=== PATIENT | female | born 1930 | race Caucasian/White ===

== ENCOUNTER 2017-05-25 12:28 | Inpatient (IN) | payer OTHER, MEDICARE ==
[2017-05-25] VITALS (7 sets, daily range): BP systolic 110–162; BP diastolic 65–87; PULSE 71–90; RESP 16–20; TEMP 97.8–98.8; O2SAT 97–100
[~2017-05-25] VITALS: Ht 165.1 cm; Wt 52.1 kg
[2017-05-25] MEDS ORDERED: ONDANSETRON HCL 4 MG/2 ML VIAL IV ONE (13:15)
--- NOTE | 2017-05-25 13:15 | PD ---
HPI Chief Complaint: General Weakness Time Seen by Provider: 13:11 Travel History International Travel<30 days: No Contact w/Intl Traveler<30days: No Traveled to known affect area: No History of Present Illness HPI 86-year-old female patient presents to the ER today brought in by daughter because she has had several days' history of nausea, burping, general weakness, not eating well, one episode of vomiting. They deny any diarrhea, fevers, abdominal pains, or any other symptoms. They do not know any sick contacts. Modifying Factors: None Associated Signs & Symptoms: Nausea, not feeling well, general weakness, burping , vomiting Risk Factors: None PFSH Past Medical History ?: Not Social History Tobacco Use: No Allergies-Medications (Allergen,Severity, Reaction): Coded Allergies: No Known Allergies (Unverified , 05/25/17) Review of Systems Except as stated in HPI: all other systems reviewed are Neg Physical Exam Narrative GENERAL: Well-developed elderly white female patient currently in moderate distress. Awake, oriented 3. SKIN: Focused skin assessment warm/dry. HEAD: Atraumatic. Normocephalic. EYES: Pupils equal and round. No scleral icterus. No injection or drainage. ENT: No nasal bleeding or discharge. Mucous membranes pink and moist. NECK: Trachea midline. No JVD. CARDIOVASCULAR: Regular rate and rhythm. No murmur appreciated. RESPIRATORY: No accessory muscle use. Clear to auscultation. Breath sounds equal bilaterally. GASTROINTESTINAL: Abdomen soft, non-tender, nondistended. Hepatic and splenic margins not palpable. MUSCULOSKELETAL: No obvious deformities. No clubbing. No cyanosis. No edema. NEUROLOGICAL: Awake and alert. No obvious cranial nerve deficits. Motor grossly within normal limits. Normal speech. PSYCHIATRIC: Appropriate mood and affect; insight and judgment normal. Data Data Last Documented VS Vital Signs Date Time Temp Pulse Resp B/P Pulse Ox O2 Delivery O2 Flow Rate FiO2 05/25/17 12:37 97.8 90 18 132/78 99 Orders Complete Blood Count With Diff (05/25/17 13:03) Comprehensive Metabolic Panel (05/25/17 13:03) Lactic Acid Sepsis Protocol (05/25/17 13:03) Magnesium (Mg) (05/25/17 13:03) Lipase (05/25/17 13:03) Ckmb (Isoenzyme) Profile (05/25/17 13:03) Troponin I (05/25/17 13:03) Urinalysis - C+S If Indicated (05/25/17 13:03) Blood Culture (05/25/17 13:03) Chest, Single Ap (05/25/17 13:03) Blood Glucose (05/25/17 13:03) Ecg Monitoring (05/25/17 13:03) Iv Access Insert/Monitor (05/25/17 13:03) Oximetry (05/25/17 13:03) Oxygen Administration (05/25/17 13:03) Ondansetron Inj (Zofran Inj) (05/25/17 13:15) Abdomen, Flat & Upright (05/25/17 13:11) Ns + Kcl 20 Meq Inj (Ns + Kcl 20 Meq Inj (05/25/17 14:15) Sodium Chlorid 0.9% 500 Ml Inj (Ns 500 M (05/25/17 14:15) Labs Laboratory Tests Test 05/25/17 05/25/17 13:25 14:00 White Blood Count 8.3 TH/MM3 Red Blood Count 4.82 MIL/MM3 Hemoglobin 14.6 GM/DL Hematocrit 44.3 % Mean Corpuscular Volume 91.8 FL Mean Corpuscular Hemoglobin 30.3 PG Mean Corpuscular Hemoglobin 33.1 % Concent Red Cell Distribution Width 12.3 % Platelet Count 143 TH/MM3 Mean Platelet Volume 10.2 FL Neutrophils (%) (Auto) 76.4 % Lymphocytes (%) (Auto) 15.3 % Monocytes (%) (Auto) 7.3 % Eosinophils (%) (Auto) 0.4 % Basophils (%) (Auto) 0.6 % Neutrophils # (Auto) 6.4 TH/MM3 Lymphocytes # (Auto) 1.3 TH/MM3 Monocytes # (Auto) 0.6 TH/MM3 Eosinophils # (Auto) 0.0 TH/MM3 Basophils # (Auto) 0.0 TH/MM3 CBC Comment DIFF FINAL Differential Comment Sodium Level 141 MEQ/L Potassium Level 2.9 MEQ/L Chloride Level 101 MEQ/L Carbon Dioxide Level 28.0 MEQ/L Anion Gap 12 MEQ/L Blood Urea Nitrogen 16 MG/DL Creatinine 1.10 MG/DL Estimat Glomerular Filtration 47 ML/MIN Rate Random Glucose 121 MG/DL Lactic Acid Level 4.1 mmol/L Calcium Level 9.9 MG/DL Magnesium Level 1.9 MG/DL Total Bilirubin 1.0 MG/DL Aspartate Amino Transf 25 U/L (AST/SGOT) Alanine Aminotransferase 29 U/L (ALT/SGPT) Alkaline Phosphatase 99 U/L Total Creatine Kinase 51 U/L Troponin I LESS THAN 0.02 NG/ML Total Protein 7.8 GM/DL Albumin 3.9 GM/DL Lipase 154 U/L Urine Collection Type CATH Urine Color YELLOW Urine Turbidity CLEAR Urine pH 7.0 Urine Specific [place] 1.016 Urine Protein TRACE mg/dL Urine Glucose (UA) NEG mg/dL Urine Ketones 80 OR GREATER mg/dL Urine Occult Blood NEG Urine Nitrite NEG Urine Bilirubin NEG Urine Leukocyte Esterase NEG Urine Squamous Epithelial 0-5 /hpf Cells Microscopic Urinalysis Comment CULT NOT INDICATED MDM Medical Decision Making Medical Screen Exam Complete: Yes Emergency Medical Condition: Yes Medical Record Reviewed: Yes Interpretation(s) Laboratory Tests Test 05/25/17 05/25/17 13:25 14:00 Platelet Count 143 TH/MM3 (150-450) Neutrophils (%) (Auto) 76.4 % (16.0-70.0) Potassium Level 2.9 MEQ/L (3.5-5.1) Creatinine 1.10 MG/DL (0.50-1.00) Estimat Glomerular Filtration 47 ML/MIN (>89) Rate Random Glucose 121 MG/DL (74-106) Lactic Acid Level 4.1 mmol/L (0.4-2.0) Troponin I LESS THAN 0.02 NG/ML (0.02-0.05) Urine Ketones 80 OR GREATER mg/dL (NEG) Last 24 hours Impressions Abdomen X-Ray 05/25/17 1311 Signed Impressions: Service Date/Time: Thursday, May 25, 2017 13:42 - CONCLUSION: Cholelithiasis. Marylou Winkler MD Chest X-Ray 05/25/17 1303 Signed Impressions: Service Date/Time: Thursday, May 25, 2017 13:40 - CONCLUSION: No acute cardiopulmonary disease. Marylou Winkler MD Differential Diagnosis Nausea, general weakness, vomiting, poor by mouth intakedehydration versus metabolic issues versus gastroenteritis Narrative Course Lab work shows significant hypokalemia. She is generally weak in the ER but has no focal findings. Abdomen is fairly benign. IV fluids and potassium was given in the ER. My plan would be to admit the patient for further evaluation. Case was discussed with Dr. Valero for admission. Diagnosis Primary Impression: Hypokalemia Additional Impression: Dehydration Admitting Information Admitting Physician Requests: it Ludmila Moses MD May 25, 2017 13:15
[2017-05-25 13:40] LABS: AUTOMATED NEUTROPHIL # 6.4 TH/MM3 (1.8-7.7); BASOPHIL % 0.6 % (0.0-2.0); EOSINOPHIL % 0.4 % (0.0-4.0); HEMATOCRIT 44.3 % (35.0-46.0); HEMO FLAGS DIFF FINAL; LYMPH % 15.3 % (9.0-44.0); LYMPHOCYTE # 1.3 TH/MM3 (1.0-4.8); MEAN CELL VOLUME 91.8 FL (80.0-100.0); MEAN CORPUSCULAR HEMOGLOBIN 30.3 PG (27.0-34.0); MEAN CORPUSCULAR HGB CONC 33.1 % (32.0-36.0); MONO % 7.3 % (0.0-8.0); NEUT % 76.4 % (16.0-70.0); PLATELET COUNT 143 TH/MM3 (150-450); RED BLOOD COUNT 4.82 MIL/MM3 (4.00-5.30); RED CELL DISTRIBUTION WIDTH 12.3 % (11.6-17.2); WHITE BLOOD COUNT 8.3 TH/MM3 (4.0-11.0)
--- NOTE | 2017-05-25 14:03 | RADRPT ---
EXAM DATE/TIME: 05/25/2017 13:40 [facility] COMPARISON: No previous studies available for comparison. INDICATIONS : Short of breath, dizzy, light headed, weak MEDICAL HISTORY : None. SURGICAL HISTORY : Hysterectomy. ENCOUNTER: Initial ACUITY: 3 days PAIN SCORE: 0/10 LOCATION: Bilateral chest FINDINGS: The lungs are clear without infiltrate, nodule, or mass. There is no appreciable pleural effusion fo r technique. Heart and mediastinum are unremarkable. Chronic degenerative changes are present in malina ateral shoulders. There are atherosclerotic calcifications of the aorta due to chronic atheroscleroti c disease. There are degenerative changes within the thoracic spine and the bony structures appear sl ightly osteopenic. CONCLUSION: No acute cardiopulmonary disease. Marylou Winkler MD on May 25, 2017 at 14:01 Board Certified Radiologist. This report was verified electronically.
[2017-05-25 14:04] LABS: ALKALINE PHOSPHATASE 99 U/L (45-117); ALT (GPT) 29 U/L (10-53); ANION GAP 12 MEQ/L (5-15); AST (GOT) 25 U/L (15-37); BLOOD UREA NITROGEN 16 MG/DL (7-18); CHLORIDE 101 MEQ/L (98-107); CREATINE KINASE 51 U/L (26-192); GLOMERULAR FILTRATION RATE 47 ML/MIN (>89); MAGNESIUM 1.9 MG/DL (1.5-2.5); SODIUM (NA) 141 MEQ/L (136-145)
--- NOTE | 2017-05-25 14:04 | RADRPT ---
EXAM DATE/TIME: 05/25/2017 13:42 [facility] COMPARISON: No previous studies available for comparison. INDICATIONS : Weak, vomiting, unable to eat, dizzy, short of breath MEDICAL HISTORY : None. SURGICAL HISTORY : Hysterectomy. ENCOUNTER: Initial ACUITY: 3 days PAIN SCORE: 0/10 LOCATION: Bilateral abdomen FINDINGS: The bowel gas is nonspecific. There are no signs of obstruction or free air for technique. No defini te calcified stones are identified for technique. The gallbladder demonstrates multiple stones withou t gallbladder wall thickening, or pericholecystic fluid. Chronic atherosclerotic calcifications are s een involving the visualized arteries particularly the splenic artery. There are atherosclerotic calc ifications of the aorta due to chronic atherosclerotic disease. There is lumbar scoliosis with degene rative changes convexity towards the right. CONCLUSION: Cholelithiasis. Marylou Winkler MD on May 25, 2017 at 14:02 Board Certified Radiologist. This report was verified electronically.
[2017-05-25 14:05] LABS: POTASSIUM 2.9 MEQ/L (3.5-5.1)
[2017-05-25 14:12] LABS: BLOOD, URINE NEG (NEG); GLUCOSE,URINE NEG (NEG); NITRITE,URINE NEG (NEG)
[2017-05-25 14:14] LABS: KETONE, URINE 80 OR GREATER mg/dL (NEG)
[2017-05-25 14:15] LABS: METHOD OF COLLECTION CATH; URINE COLOR YELLOW (YELLW/STRAW)
[2017-05-25] MEDS ORDERED: SODIUM CHLORID 0.9% 500 ML INJ 500 ML IV ONE (14:15)
[2017-05-25 14:16] LABS: COMMENT (UR) CULT NOT INDICATED; CULTURE IF INDICATED CULT NOT INDICATED; SQUAMOUS EPITHELIAL CELL URINE 0-5 /hpf (0-5)
[2017-05-25] MEDS: NS + KCL 20 MEQ INJ 1,000 ML IV SCH ×2 (14:29→20:52)
[2017-05-25] MEDS ORDERED: BISACODYL 10 MG SUPP RECTAL PRN (14:30)
[2017-05-25] MEDS ORDERED: SODIUM CHLORIDE 0.9% FLUSH 10 ML FLUSH IV FLUSH PRN (14:30)
[2017-05-25] MEDS ORDERED: ACETAMINOPHEN 325 MG TAB PO PRN (14:30)
[2017-05-25] MEDS ORDERED: ONDANSETRON HCL 4 MG/2 ML VIAL IVP PRN (14:30)
[2017-05-25] MEDS ORDERED: MAGNESIUM HYDROXIDE SUSP 30 ML CUP PO PRN (14:30)
[2017-05-25] MEDS ORDERED: NALOXONE HCL 0.4 MG/ML AMP IV PRN (14:30)
[2017-05-25] MEDS ORDERED: SENNOSIDES 8.6 MG TAB PO PRN (14:30)
[2017-05-25] MEDS ORDERED: TRIA1TAB5 PO (14:44)
[2017-05-25] MEDS ORDERED: ALLO100T PO (14:44)
[2017-05-25] MEDS ORDERED: POTA-243 PO (14:44)
[2017-05-25] MEDS ORDERED: GEMF600T PO (14:44)
[2017-05-25] MEDS ORDERED: METO50TA PO (14:44)
--- NOTE | 2017-05-25 15:07 | HHI.HP ---
[facility] Service [place] [facility] Primary Care Physician Analy Pop MD Admission Diagnosis hypokalemia, dehydration Diagnoses: Chief Complaint: Poor oral intake, feeling down Travel History International Travel<30 Days: No Contact w/Intl Traveler <30 Da: No Traveled to Known Affected Are: No History of Present Illness 86 years old female brought to the ED by her daughter due to not eating or drinking for last 2 days and significant anhedonia for the last 2 weeks, history of losing about 15 pounds over the last 2 months. Patient denied any significant complain like fever chills, night sweat, chest pain abdominal pain, headache blurry vision, diarrhea or dysuria, she reported constipation Patient is not happy about coming to the hospital brought by her daughter, she doesn't think she need to be here, however she agreed that she doesn't feel like doing anything or eating anything because "nothing seems to be at feeling " When I asked her if she feels sad or depressed she denied. In ED she was found to have low potassium 2.9 and lactic acid of 4.1 along with azotemia increase creatinine, we do not have a baseline of her creatinine, blood culture obtained, patient started on iv fluids with KCl, no leukocytosis, neutrophils 79, no fever or chills. Abdominal x-rays showed cholelithiasis Review of Systems All systems reviewed and was positive for what is mentioned in history of present illness otherwise negative Past Family Social History Past Medical History Right basal cell carcinoma on the right hand skin Hypertension Gout Hyperlipidemia Past Surgical History BCC excision on the right arm Allergies: Coded Allergies: No Known Allergies (Unverified , 05/25/17) Family History Skin cancer Social History Denied tobacco alcohol or illicit drug abuse Physical Exam Vital Signs Vital Signs Date Time Temp Pulse Resp B/P Pulse Ox O2 Delivery O2 Flow Rate FiO2 05/25/17 14:53 83 16 133/73 98 05/25/17 13:50 85 16 110/65 99 05/25/17 12:37 97.8 90 18 132/78 99 Physical Exam GENERAL: This is a well-nourished, well-developed patient, in no apparent distress. SKIN: No rashes, warm and dry HEAD: Atraumatic. Normocephalic. EYES: Pupils equal round and reactive. Extraocular motions intact. No scleral icterus. ENT: Nose without bleeding, or drainage, Airway patent. NECK: Trachea midline. Supple CARDIOVASCULAR: Regular rate and rhythm without murmurs, gallops, or rubs. RESPIRATORY: Fair air entry bilaterally. No wheezes, rales, or rhonchi. GASTROINTESTINAL: Abdomen soft, non-tender, nondistended. Positive bowel sounds MUSCULOSKELETAL: Extremities without clubbing, cyanosis, or edema. Pedal pulses appreciated NEUROLOGICAL: Awake and alert. Moves all extremity. Normal speech.no focal neurological deficit Laboratory Laboratory Tests Test 05/25/17 05/25/17 13:25 14:00 White Blood Count 8.3 Red Blood Count 4.82 Hemoglobin 14.6 Hematocrit 44.3 Mean Corpuscular Volume 91.8 Mean Corpuscular Hemoglobin 30.3 Mean Corpuscular Hemoglobin 33.1 Concent Red Cell Distribution Width 12.3 Platelet Count 143 Mean Platelet Volume 10.2 Neutrophils (%) (Auto) 76.4 Lymphocytes (%) (Auto) 15.3 Monocytes (%) (Auto) 7.3 Eosinophils (%) (Auto) 0.4 Basophils (%) (Auto) 0.6 Neutrophils # (Auto) 6.4 Lymphocytes # (Auto) 1.3 Monocytes # (Auto) 0.6 Eosinophils # (Auto) 0.0 Basophils # (Auto) 0.0 CBC Comment DIFF FINAL Differential Comment Sodium Level 141 Potassium Level 2.9 Chloride Level 101 Carbon Dioxide Level 28.0 Anion Gap 12 Blood Urea Nitrogen 16 Creatinine 1.10 Estimat Glomerular Filtration 47 Rate Random Glucose 121 Lactic Acid Level 4.1 Calcium Level 9.9 Magnesium Level 1.9 Total Bilirubin 1.0 Aspartate Amino Transf 25 (AST/SGOT) Alanine Aminotransferase 29 (ALT/SGPT) Alkaline Phosphatase 99 Total Creatine Kinase 51 Troponin I LESS THAN 0.02 Total Protein 7.8 Albumin 3.9 Lipase 154 Urine Collection Type CATH Urine Color YELLOW Urine Turbidity CLEAR Urine pH 7.0 Urine Specific [place] 1.016 Urine Protein TRACE Urine Glucose (UA) NEG Urine Ketones 80 OR GREATER Urine Occult Blood NEG Urine Nitrite NEG Urine Bilirubin NEG Urine Leukocyte Esterase NEG Urine Squamous Epithelial 0-5 Cells Microscopic Urinalysis Comment CULT NOT INDICATED Date/Time Procedure Status Source Growth 05/25/17 13:55 Aerobic Blood Culture Received Blood Peripheral Pending 05/25/17 13:55 Anaerobic Blood Culture Received Blood Peripheral Pending Result Diagram: 05/25/17 1325 05/25/17 1325 Imaging Last Impressions Abdomen X-Ray 05/25/17 1311 Signed Impressions: Service Date/Time: Thursday, May 25, 2017 13:42 - CONCLUSION: Cholelithiasis. Marylou Winkler MD Chest X-Ray 05/25/17 1303 Signed Impressions: Service Date/Time: Thursday, May 25, 2017 13:40 - CONCLUSION: No acute cardiopulmonary disease. Marylou Winkler MD Assessment and Plan Assessment and Plan 86 years old female admitted with poor oral intake, and progressive weakness -Poor oral intake resulted in dehydration , hypokalemia and lactic acidosis: Need to rule out underlying infection, blood culture sent, started iv fluid with KCl, UA is negative, check cardiac enzyme, EKG reviewed personally by me no acute ST changes -ROBIN versus CKD: Continue iv fluid, avoid nephrotoxin, monitor BMP, BUN and creatinine -Hypertension: Hold HCTZ and trimetrine due to dehydration and ROBIN, clonidine as needed -Hyperlipidemia: Continue gemfibrozil -Weakness: PT OT consulted -DVT prophylaxis with SCD and heparin We'll admit for observation, hydration, rule out underlying infection Discussed Condition With Patient in ED physician Peggy Valero MD May 25, 2017 15:07
[2017-05-25] MEDS ORDERED: cloNIDine HCL 0.1 MG TAB PO PRN (15:15)
[2017-05-25 15:35] LABS: LACTIC ACID GHOST NOT REPORTABLE
--- NOTE | 2017-05-25 16:12 | RADRPT ---
EXAM DATE/TIME: 05/25/2017 15:13 [facility] COMPARISON: No previous studies available for comparison. INDICATIONS : Nausea and vomiting. MEDICAL HISTORY : Hypertension. Nausea. Vomiting. SURGICAL HISTORY : Tonsillectomy. Hysterectomy. ENCOUNTER: Initial ACUITY: 1 day PAIN SCORE: 3/10 LOCATION: Right upper quadrant MEASUREMENTS: LIVER: 12.5 cm length COMMON DUCT: 2 mm RIGHT KIDNEY: 9.2 x 4.4 x 3.9 cm FINDINGS: Numerous large gallstones are present with extensive sludge within the gallbladder without gallbladde r wall thickening, or pericholecystic fluid. The visualized liver, head of the pancreas, and right k idney appear grossly intact for technique. CONCLUSION: Cholelithiasis. Marylou Winkler MD on May 25, 2017 at 16:10 Board Certified Radiologist. This report was verified electronically.
[2017-05-25] MEDS: HEPARIN SODIUM - SQ 10,000 UNITS/ML VIAL SQ SCH ×2 (16:17→20:53)
[2017-05-25] MEDS: GEMFIBROZIL 600 MG TAB PO SCH (16:18)
[2017-05-25 16:45] LABS: CREATINE KINASE 56 U/L (26-192)
[2017-05-25] MEDS: SODIUM CHLORIDE 0.9% FLUSH 10 ML FLUSH IV FLUSH SCH (20:52)
[2017-05-25] MEDS: DOCUSATE SODIUM 50 MG/SENNA 8.6 MG TAB PO SCH (20:52)
[2017-05-26] VITALS (7 sets, daily range): BP systolic 125–160; BP diastolic 65–93; PULSE 69–80; RESP 16–20; TEMP 96–100.6; O2SAT 94–100
[2017-05-26] MEDS: GEMFIBROZIL 600 MG TAB PO SCH ×2 (05:59→16:00)
[2017-05-26] MEDS: HEPARIN SODIUM - SQ 10,000 UNITS/ML VIAL SQ SCH ×3 (05:59→22:43)
[2017-05-26 06:57] LABS: AUTOMATED NEUTROPHIL # 3.9 TH/MM3 (1.8-7.7); BASOPHIL % 0.5 % (0.0-2.0); EOSINOPHIL % 0.8 % (0.0-4.0); HEMATOCRIT 37.3 % (35.0-46.0); LYMPH % 20.3 % (9.0-44.0); LYMPHOCYTE # 1.2 TH/MM3 (1.0-4.8); MEAN CELL VOLUME 93.1 FL (80.0-100.0); MEAN CORPUSCULAR HEMOGLOBIN 30.3 PG (27.0-34.0); MEAN CORPUSCULAR HGB CONC 32.5 % (32.0-36.0); MONO % 11.2 % (0.0-8.0); NEUT % 67.2 % (16.0-70.0); PLATELET COUNT 98 TH/MM3 (150-450); RED BLOOD COUNT 4.01 MIL/MM3 (4.00-5.30); WHITE BLOOD COUNT 5.8 TH/MM3 (4.0-11.0)
[2017-05-26 06:58] LABS: HEMO FLAGS AUTO DIFF
[2017-05-26 07:14] LABS: PLATELET ESTIMATE SMEAR LOW (NORMAL); PLATELET MORPHOLOGY NORMAL (NORMAL); SCAN/DIFF AUTO DIFF CONFIRMED
[2017-05-26 07:19] LABS: BICARBONATE 26.8 MEQ/L (21.0-32.0); INDIRECT BILIRUBIN 0.6 MG/DL (0.0-0.8); POTASSIUM 3.1 MEQ/L (3.5-5.1); TOTAL BILIRUBIN ADULT 0.8 MG/DL (0.2-1.0)
[2017-05-26] MEDS: METOPROLOL TARTRATE 50 MG TAB PO SCH (08:46)
[2017-05-26] MEDS: DOCUSATE SODIUM 50 MG/SENNA 8.6 MG TAB PO SCH ×2 (08:46→20:17)
[2017-05-26] MEDS: ALLOPURINOL 100 MG TAB PO SCH (08:46)
[2017-05-26] MEDS: SODIUM CHLORIDE 0.9% FLUSH 10 ML FLUSH IV FLUSH SCH ×2 (08:47→20:12)
[2017-05-26] MEDS: NS + KCL 20 MEQ INJ 1,000 ML IV SCH ×2 (08:56→18:25)
[2017-05-26] MEDS ORDERED: POTASSIUM CHLORIDE 10 MEQ CONTROLLED RELEASE TAB PO SCH (09:00)
[2017-05-26] MEDS ORDERED: TRIAMTERENE/HCTZ 75 MG/50 MG TAB PO SCH (09:00)
[2017-05-26] MEDS ORDERED: POTA10TA2 PO (09:05)
[2017-05-26] MEDS ORDERED: AMLO5TAB2 PO (09:05)
[2017-05-26] MEDS ORDERED: POTASSIUM CHLOR 20 MEQ PREMIX 100 ML IV ONE (09:15)
[2017-05-26] MEDS ORDERED: POTASSIUM CHLORIDE 20 MEQ CONTROLLED RELEASE TAB PO ONE (09:30)
--- NOTE | 2017-05-26 10:01 | HHI.FF ---
Face to Face Verification Diagnosis: (1) Dehydration (2) Hypokalemia (3) Weakness Physical Therapy Order: Evaluate and Treat Occupational Therapy Order: Evaluate and Treat Home Health Nursing Order: Medical education I have seen patient Eufemia Baron on 05/26/17. My clinical findings support the need for the requested home health care services because: Deconditioned w/ increased weakness I certify that my clinical findings support that this patient is homebound because: Unsafe to leave home unassisted Peggy Valero MD May 26, 2017 10:01
--- NOTE | 2017-05-26 10:45 | HHI.PR ---
Subjective Remarks Patient resting in bed, she looked sad but she denied active complain besides feeling weak Her potassium still on the lower side 3.1 this despite iv replacement This morning the nurse told me patient had 3-4 large watery bowel movement, when I asked the patient she said "you have I may have diarrhea " Patient had a fever of 100.6 this morning at 1 AM No leukocytosis today no bandemia Objective Vitals Vital Signs Date Time Temp Pulse Resp B/P Pulse Ox O2 Delivery O2 Flow Rate FiO2 05/26/17 08:00 97.9 77 18 142/78 100 05/26/17 08:00 77 05/26/17 04:00 98.8 78 16 160/73 98 05/26/17 01:11 100.6 80 20 158/93 100 05/25/17 21:52 98.8 71 18 140/67 97 05/25/17 20:00 71 05/25/17 20:00 97 Nasal Cannula 2.00 05/25/17 18:15 76 05/25/17 17:50 98.8 82 20 162/87 100 05/25/17 14:53 83 16 133/73 98 05/25/17 13:50 85 16 110/65 99 05/25/17 12:37 97.8 90 18 132/78 99 I/O 05/25/17 05/25/17 05/25/17 05/26/17 05/26/17 05/26/17 06:59 14:59 22:59 06:59 14:59 22:59 Intake Total 500 ml 905 ml Balance 500 ml 905 ml Intake IV Total 500 ml 905 ml # Voids 1 3 # Bowel Movements 1 1 Result Diagram: 05/26/17 0545 05/26/17 0545 Imaging Last Impressions Gall Bladder Ultrasound 05/25/17 1432 Signed Impressions: Service Date/Time: Thursday, May 25, 2017 15:13 - CONCLUSION: Cholelithiasis. Marylou Winkler MD Abdomen X-Ray 05/25/17 1311 Signed Impressions: Service Date/Time: Thursday, May 25, 2017 13:42 - CONCLUSION: Cholelithiasis. Marylou Winkler MD Chest X-Ray 05/25/17 1303 Signed Impressions: Service Date/Time: Thursday, May 25, 2017 13:40 - CONCLUSION: No acute cardiopulmonary disease. Marylou Winkler MD Objective Remarks GENERAL: This is a well-nourished, well-developed patient, in no apparent distress. SKIN: No rashes, warm and dry HEAD: Atraumatic. Normocephalic. EYES: Pupils equal round and reactive. Extraocular motions intact. No scleral icterus. ENT: Nose without bleeding, or drainage, Airway patent. NECK: Trachea midline. Supple CARDIOVASCULAR: Regular rate and rhythm without murmurs, gallops, or rubs. RESPIRATORY: Fair air entry bilaterally. No wheezes, rales, or rhonchi. GASTROINTESTINAL: Abdomen soft, non-tender, nondistended. Positive bowel sounds MUSCULOSKELETAL: Extremities without clubbing, cyanosis, or edema. Pedal pulses appreciated NEUROLOGICAL: Awake and alert. Moves all extremity. Normal speech.no focal neurological deficit A/P Assessment and Plan 86 years old female admitted with poor oral intake, and progressive weakness -Poor oral intake resulted in dehydration , hypokalemia and lactic acidosis: Need to rule out underlying infection, blood culture sent, started iv fluid with KCl, UA is negative, check cardiac enzyme, EKG reviewed personally by me no acute ST changes -ROBIN : Improved on iv hydration Continue iv fluid, avoid nephrotoxin, monitor BMP, BUN and creatinine -Acute diarrhea: Send stool for ova WBC and C. 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 UA negative, chest x- ray negative. We'll check abdominal CT considering her new diarrhea Discharge Planning When stable Peggy Valero MD May 26, 2017 10:45
[2017-05-26] MEDS ORDERED: SODIUM CHLOR 0.9% 1000 ML INJ 1,000 ML IV SCH (11:30)
[2017-05-26] MEDS ORDERED: LEVO50TA4 PO (13:13)
[2017-05-26] MEDS ORDERED: VANCOMYCIN INJ 850 MG in SODIUM CHLOR 0.9% 250 ML INJ 250 ML IV SCH (15:15)
[2017-05-26] MEDS ORDERED: Vancomycin Consult Pharmacy 1 EA OTHER SCH (16:00)
[2017-05-26 17:06] LABS: C. DIFF EPI 027 PRESUMPTIVE NEGATIVE (NEGATIVE); C. DIFF TOXIN PCR NEGATIVE (NEGATIVE)
[2017-05-26] MEDS: VANCOMYCIN 1,000 MG/NS 250 ML IV SCH ×2 (18:25)
[2017-05-26] MEDS ORDERED: DIATRIZOATE MEGLUM/DIATRIZOATE SOD 9 ML CUP PO ONE (19:45)
--- NOTE | 2017-05-26 19:52 | EKG ---
Date Performed: 05/25/2017 Time Performed: 14:45:41 PTAGE: 86 years EKG: Sinus rhythm NONSPECIFIC ST & T-WAVE ABNORMALITY BORDERLINE ECG NO PREVIOUS TRACING DOCTOR: Yeyo Gonzalez Interpretating Date/Time 05/26/2017 19:50:52
--- NOTE | 2017-05-26 19:53 | EKG ---
Date Performed: 05/25/2017 Time Performed: 20:34:21 PTAGE: 86 years EKG: Sinus rhythm NONSPECIFIC ST & T-WAVE ABNORMALITY BORDERLINE ECG PREVIOUS TRACING : 05/25/2017 14.45 Since previous tracing, no significant change noted DOCTOR: Yeyo Gonzalez Interpretating Date/Time 05/26/2017 19:51:21
--- NOTE | 2017-05-26 23:47 | RADRPT ---
EXAM DATE/TIME: 05/26/2017 22:42 [facility] COMPARISON: No previous studies available for comparison. INDICATIONS : Right abdominal pain. Fever. Diarrhea. ORAL CONTRAST: Prescribed oral contrast ingested. RADIATION DOSE: 11.09 CTDIvol (mGy) MEDICAL HISTORY : Hypertension. Gastroesophageal reflux disease. Carcinoma, basal cell. SURGICAL HISTORY : Hysterectomy. ENCOUNTER: Subsequent ACUITY: 3 days PAIN SCALE: 2/10 LOCATION: Right abdomen and pelvis TECHNIQUE: Volumetric scanning of the abdomen and pelvis was performed. Using automated exposure control and ad justment of the mA and/or kV according to patient size, radiation dose was kept as low as reasonably achievable to obtain optimal diagnostic quality images. DICOM format image data is available electro nically for review and comparison. The lack of IV contrast limits the diagnosis for certain organ pa thology. FINDINGS: LOWER LUNGS: Mild bibasilar atelectasis. LIVER: Homogeneous density without lesion. There is no dilation of the biliary tree. Prominent calcified ga llstones in the gallbladder. No surrounding inflammatory changes.. SPLEEN: Normal size without lesion. PANCREAS: Within normal limits. KIDNEYS: Normal in size and shape. There is no mass, stone, or hydronephrosis. ADRENAL GLANDS: Within normal limits. VASCULAR: There is no aortic aneurysm. Atherosclerotic changes. BOWEL/MESENTERY: The stomach, small bowel, and colon demonstrate no acute abnormality. There is no free intraperitone al air or fluid. The appendix is unremarkable. No inflammatory changes. ABDOMINAL WALL: Within normal limits. RETROPERITONEUM: There is no lymphadenopathy. BLADDER: No wall thickening or mass. REPRODUCTIVE: Within normal limits. INGUINAL: There is no lymphadenopathy or hernia. MUSCULOSKELETAL: Within normal limits for patient age. Diffuse bony degenerative changes. CONCLUSION: 1. Several prominent gallstones in the gallbladder. No biliary tract obstruction. No adjacent inflamm atory changes. 2. No calcified renal stones or hydronephrosis. 3. No acute pathology. Mayito Stoddard MD on May 26, 2017 at 23:42 Board Certified Radiologist. This report was verified electronically.
[2017-05-27] VITALS (9 sets, daily range): BP systolic 119–150; BP diastolic 60–83; PULSE 59–77; RESP 18–20; TEMP 96.2–98.9; O2SAT 96–100
[2017-05-27] MEDS: GEMFIBROZIL 600 MG TAB PO SCH ×2 (06:25→16:47)
[2017-05-27] MEDS: NS + KCL 20 MEQ INJ 1,000 ML IV SCH ×3 (06:25→21:26)
[2017-05-27] MEDS: HEPARIN SODIUM - SQ 10,000 UNITS/ML VIAL SQ SCH ×3 (07:00→21:25)
[2017-05-27] MEDS: DOCUSATE SODIUM 50 MG/SENNA 8.6 MG TAB PO SCH ×2 (07:06→19:26)
[2017-05-27] MEDS: SODIUM CHLORIDE 0.9% FLUSH 10 ML FLUSH IV FLUSH SCH ×2 (07:17→19:26)
[2017-05-27] MEDS: METOPROLOL TARTRATE 50 MG TAB PO SCH (09:31)
[2017-05-27] MEDS: TRIAMTERENE/HCTZ 37.5 MG/25 MG TAB PO SCH (09:31)
[2017-05-27] MEDS: ALLOPURINOL 100 MG TAB PO SCH (09:31)
--- NOTE | 2017-05-27 11:24 | HHI.PR ---
Subjective Remarks Patient seems to be depressed, she never answer question with a specific answer Likely when I asked her "did you have diarrhea? "She answer "I guess, that's what they say " Patient seems to be still having diarrhea, we are waiting on 1 to positive blood culture and stool culture I will start patient on Remeron Objective Vitals Vital Signs Date Time Temp Pulse Resp B/P Pulse Ox O2 Delivery O2 Flow Rate FiO2 05/27/17 08:00 97.2 62 18 130/65 100 05/27/17 04:00 96.2 70 18 123/70 98 05/27/17 00:00 97.1 70 20 119/60 97 05/26/17 22:24 95 Nasal Cannula 2.00 05/26/17 20:00 73 05/26/17 20:00 96.0 71 20 125/65 100 05/26/17 16:00 97.5 79 18 126/76 94 05/26/17 12:00 97.7 69 18 131/77 96 I/O 05/26/17 05/26/17 05/26/17 05/27/17 05/27/17 05/27/17 06:59 14:59 22:59 06:59 14:59 22:59 Intake Total 905 ml 1106 ml Output Total 2 ml Balance 905 ml 1104 ml Intake Oral 120 ml IV Total 905 ml 986 ml Output Urine Total 1 ml Stool Total 1 ml # Voids 3 4 # Bowel Movements 1 1 10 Result Diagram: 05/26/17 0545 05/26/17 1555 Objective Remarks GENERAL: This is a well-nourished, well-developed patient, in no apparent distress. SKIN: No rashes, warm and dry HEAD: Atraumatic. Normocephalic. EYES: Pupils equal round and reactive. Extraocular motions intact. No scleral icterus. ENT: Nose without bleeding, or drainage, Airway patent. NECK: Trachea midline. Supple CARDIOVASCULAR: Regular rate and rhythm without murmurs, gallops, or rubs. RESPIRATORY: Fair air entry bilaterally. No wheezes, rales, or rhonchi. GASTROINTESTINAL: Abdomen soft, non-tender, nondistended. Positive bowel sounds MUSCULOSKELETAL: Extremities without clubbing, cyanosis, or edema. Pedal pulses appreciated NEUROLOGICAL: Awake and alert. Moves all extremity. Normal speech.no focal neurological deficit Psych "flat affect A/P Assessment and Plan 86 years old female admitted with poor oral intake, and progressive weakness -Poor oral intake resulted in dehydration , hypokalemia and lactic acidosis: Need to rule out underlying infection, blood culture sent, started iv fluid with KCl, UA is negative, check cardiac enzyme, EKG reviewed personally by me no acute ST changes, started Remeron, -Positive blood culture in 1 to: Possibly contamination, we repeated the culture , follow closely -ROBIN : Improved on iv hydration Continue iv fluid, avoid nephrotoxin, monitor BMP, BUN and creatinine -Acute diarrhea: stool for ova WBC pending, negative C. difficile, continue iv hydration - Signs of depression: Started on Remeron will help with a poor appetite she will need to follow as an outpatient with her PCP for psychiatry referral - Hypokalemia mostly due to diarrhea: Replace -Hypertension: Hold HCTZ and trimetrine due to dehydration and ROBIN, clonidine as needed -Thrombocytopenia: Dropped from 124- 98-101 today, unlikely HIT, questionable underlying subacute ITP, no signs of bleeding, monitor -Hyperlipidemia: Continue gemfibrozil -Weakness: PT OT consulted -DVT prophylaxis with SCD and heparin Discharge Planning Possibly in a.m. if all the rest of the culture comes negative, patient will need to follow up with PCP for psych referral for depression Peggy Valero MD May 27, 2017 11:24
[2017-05-27 13:19] LABS: AUTOMATED NEUTROPHIL # 4.9 TH/MM3 (1.8-7.7); BASOPHIL # 0.1 TH/MM3 (0-0.2); EOSINOPHIL # 0.1 TH/MM3 (0-0.4); EOSINOPHIL % 0.9 % (0.0-4.0); HEMATOCRIT 37.8 % (35.0-46.0); HEMO FLAGS DIFF FINAL; LYMPH % 17.2 % (9.0-44.0); LYMPHOCYTE # 1.2 TH/MM3 (1.0-4.8); MEAN CELL VOLUME 92.2 FL (80.0-100.0); MEAN CORPUSCULAR HEMOGLOBIN 31.2 PG (27.0-34.0); MEAN CORPUSCULAR HGB CONC 33.9 % (32.0-36.0); MONO % 7.4 % (0.0-8.0); NEUT % 72.5 % (16.0-70.0); PLATELET COUNT 101 TH/MM3 (150-450); RED CELL DISTRIBUTION WIDTH 12.6 % (11.6-17.2); WHITE BLOOD COUNT 6.8 TH/MM3 (4.0-11.0)
[2017-05-27 13:31] LABS: POTASSIUM 3.5 MEQ/L (3.5-5.1)
[2017-05-27 13:37] LABS: BICARBONATE 28.7 MEQ/L (21.0-32.0)
[2017-05-27] MEDS: VANCOMYCIN 1,000 MG/NS 250 ML IV SCH ×2 (16:47)
[2017-05-27] MEDS ORDERED: MIRTAZAPINE 15 MG TAB PO SCH (21:00)
[2017-05-28] VITALS: BP 161/68; PULSE 62; RESP 20; TEMP 97.9; O2SAT 97
[2017-05-28 04:00] VITALS: BP 133/70; PULSE 74; RESP 20; TEMP 96.9; O2SAT 97
[2017-05-28] MEDS: GEMFIBROZIL 600 MG TAB PO SCH (06:15)
[2017-05-28] MEDS: HEPARIN SODIUM - SQ 10,000 UNITS/ML VIAL SQ SCH ×2 (06:16→08:28)
[2017-05-28 06:36] LABS: AUTOMATED NEUTROPHIL # 2.7 TH/MM3 (1.8-7.7); BASOPHIL # 0.1 TH/MM3 (0-0.2); BASOPHIL % 1.3 % (0.0-2.0); EOSINOPHIL # 0.2 TH/MM3 (0-0.4); EOSINOPHIL % 3.6 % (0.0-4.0); HEMATOCRIT 36.3 % (35.0-46.0); LYMPHOCYTE # 1.6 TH/MM3 (1.0-4.8); MEAN CELL VOLUME 92.8 FL (80.0-100.0); MEAN CORPUSCULAR HEMOGLOBIN 31.6 PG (27.0-34.0); MEAN CORPUSCULAR HGB CONC 34.1 % (32.0-36.0); MONO % 8.4 % (0.0-8.0); NEUT % 53.7 % (16.0-70.0); PLATELET COUNT 87 TH/MM3 (150-450); RED BLOOD COUNT 3.91 MIL/MM3 (4.00-5.30); RED CELL DISTRIBUTION WIDTH 12.6 % (11.6-17.2)
[2017-05-28 06:42] LABS: POTASSIUM 3.8 MEQ/L (3.5-5.1)
[2017-05-28 06:43] LABS: HEMO FLAGS AUTO DIFF
[2017-05-28 06:45] LABS: BICARBONATE 25.9 MEQ/L (21.0-32.0)
[2017-05-28 07:41] LABS: PLATELET ESTIMATE SMEAR LOW (NORMAL); PLATELET MORPHOLOGY NORMAL (NORMAL); SCAN/DIFF AUTO DIFF CONFIRMED
[2017-05-28 08:00] VITALS: BP 157/74; PULSE 67; PULSE 71; RESP 18; TEMP 97.4; O2SAT 95; O2SAT 99
--- NOTE | 2017-05-28 08:18 | HHI.PR ---
Subjective Remarks resting comfortably with no distress. afebrile. denies pain. wants to go home today. Objective Vitals Vital Signs Date Time Temp Pulse Resp B/P Pulse Ox O2 Delivery O2 Flow Rate FiO2 05/28/17 04:00 96.9 74 20 133/70 97 05/28/17 00:00 97.9 62 20 161/68 97 05/27/17 20:30 98 21 05/27/17 20:14 75 05/27/17 20:00 98.9 72 20 134/67 98 05/27/17 17:35 96 21 05/27/17 16:00 96.7 77 18 141/82 96 05/27/17 12:00 96.2 59 18 150/83 99 I/O 05/27/17 05/27/17 05/27/17 05/28/17 05/28/17 05/28/17 07:00 15:00 23:00 07:00 15:00 23:00 Intake Total 730 ml 759 ml 902 ml Balance 730 ml 759 ml 902 ml Intake Oral 730 ml 120 ml 60 ml IV Total 639 ml 842 ml # Voids 3 3 1 # Bowel Movements 0 3 1 Result Diagram: 05/28/17 0523 05/28/17 0523 Imaging Last Impressions Abdomen/Pelvis CT 05/26/17 0000 Signed Impressions: Service Date/Time: Friday, May 26, 2017 22:42 - CONCLUSION: 1. Several prominent gallstones in the gallbladder. No biliary tract obstruction. No adjacent inflammatory changes. 2. No calcified renal stones or hydronephrosis. 3. No acute pathology. Mayito Stoddard MD Gall Bladder Ultrasound 05/25/17 1432 Signed Impressions: Service Date/Time: Thursday, May 25, 2017 15:13 - CONCLUSION: Cholelithiasis. Marylou Winkler MD Abdomen X-Ray 05/25/17 1311 Signed Impressions: Service Date/Time: Thursday, May 25, 2017 13:42 - CONCLUSION: Cholelithiasis. Marylou Winkler MD Chest X-Ray 05/25/17 1303 Signed Impressions: Service Date/Time: Thursday, May 25, 2017 13:40 - CONCLUSION: No acute cardiopulmonary disease. Marylou Winkler MD Objective Remarks GENERAL: elderly female, in no apparent distress. CARDIOVASCULAR: Regular rate and regular rhythm without murmurs, gallops, or rubs. RESPIRATORY: Clear to auscultation. Breath sounds equal bilaterally. No wheezes , rales, or rhonchi. GASTROINTESTINAL: Abdomen soft, non-tender, nondistended. Normal, active bowel sounds MUSCULOSKELETAL: Extremities without clubbing, cyanosis, or edema. NEURO: Alert & Oriented x4 to person, place, time, situation. Moves all ext x4 Procedures none Medications and IVs Current Medications Ondansetron HCl 4 mg 4 mg ONCE ONCE IV Last administered on 05/25/17 13:52; Start 05/25/17 at 13:15; Stop 05/25/17 at 13:16; Status DC Potassium Chloride/Sodium Chloride 1,000 ml @ 100 mls/hr Q10H IV Last administered on 05/27/17 21:26; Start 05/25/17 at 14:15 Sodium Chloride (NS 500 ml Inj) 500 ml @ 500 mls/hr BOLUS ONCE IV Last administered on 05/25/17 14:29; Start 05/25/17 at 14:15; Stop 05/25/17 at 15:14 ; Status DC Sodium Chloride (NS Flush) 2 ml UNSCH PRN IV FLUSH FLUSH AFTER USING IV ACCESS ; Start 05/25/17 at 14:30 Sodium Chloride (NS Flush) 2 ml BID IV FLUSH Last administered on 05/26/17 20: 12; Start 05/25/17 at 21:00 Acetaminophen (Tylenol) 650 mg Q4H PRN PO TEMP > 100.4; Start 05/25/17 at 14:30 Ondansetron HCl (Zofran Inj) 4 mg Q6H PRN IVP NAUSEA OR VOMITING; Start at 14:30 Heparin Sodium (Porcine) (Heparin Inj) 5,000 units Q8H SQ Last administered on 05/26/17 15:00; Start 05/25/17 at 15:00 Naloxone HCl (Narcan Inj) 0.4 mg UNSCH PRN IV SEE LABEL COMMENTS; Start at 14:30 Senna/Docusate Sodium (Rosario-Colace) 1 tab BID PO Last administered on 08:46; Start 05/25/17 at 21:00 Magnesium Hydroxide (Milk Of Magnesia Liq) 30 ml Q12H PRN PO MILD - MODERATE CONSTIPATION; Start 05/25/17 at 14:30 Sennosides (Senokot) 17.2 mg Q12H PRN PO MODERATE - SEVERE CONSTIPATION; Start 05/25/17 at 14:30 Bisacodyl (Dulcolax Supp) 10 mg DAILY PRN RECTAL SEVERE CONSITIPATION; Start at 14:30 Allopurinol (Zyloprim) 200 mg DAILY PO Last administered on 05/27/17 09:31; Start 05/26/17 at 09:00 Gemfibrozil (Lopid) 600 mg BIDAC PO Last administered on 05/28/17 06:15; Start 05/25/17 at 16:00 Metoprolol Tartrate (Lopressor) 50 mg DAILY PO Last administered on 05/27/17 09:31; Start 05/26/17 at 09:00 Triamterene/HCTZ (Maxzide 75-50 Mg) 0.5 tab DAILY PO Last administered on 08:55; Start 05/26/17 at 09:00; Stop 05/26/17 at 17:42; Status DC Clonidine (Catapres) 0.1 mg Q6H PRN PO bp>160/90; Start 05/25/17 at 15:15 Potassium Chloride (KCl) 40 meq Q4H PO ; Start 05/26/17 at 09:00; Stop 05/26/17 at 09:10; Status DC Potassium Chloride 60 meq 60 meq ONCE ONCE PO Last administered on 05/26/17 10:37; Start 05/26/17 at 09:30; Stop 05/26/17 at 09:31; Status DC Potassium Chloride 100 ml @ 50 mls/hr BOLUS ONCE IV Last administered on 05/26 10:37; Start 05/26/17 at 09:15; Stop 05/26/17 at 11:14; Status DC Sodium Chloride 1,000 ml @ 150 mls/hr Q6H40M IV Last administered on 11:30; Start 05/26/17 at 11:30; Stop 05/26/17 at 15:29; Status DC Pharmacy Profile Note 0 ml @ 0 mls/hr UNSCH OTHER ; Start 05/26/17 at 16:00 Vancomycin HCl 850 mg/Sodium Chloride 258.5 ml @ 250 mls/hr Q12H IV ; Start at 15:15; Stop 05/26/17 at 15:33; Status DC Vancomycin HCl/ Sodium Chloride (Vancomycin Inj/ NS 250 ml Inj) 250 ml @ 250 mls/hr Q24H IV Last administered on 05/27/17 16:47; Start 05/26/17 at 17:00 Miscellaneous Information SPECIFIC LAB TO BE DRAWN:VANCOMY... ONCE ONCE .XX ; Start 05/29/17 at 16:45; Stop 05/29/17 at 16:46 Triamterene/HCTZ (Maxzide 37.5-25 Mg) 1 tab DAILY PO Last administered on 09:31; Start 05/27/17 at 09:00 Diatrizoate Meglum/ Diatrizoate Sod ( Gastroview Liq) 18 ml ONCE ONCE PO Last administered on 05/26/17 20:14; Start 05/26/17 at 19:45; Stop 05/26/17 at 19:46; Status DC Mirtazapine (Remeron) 15 mg HS PO Last administered on 05/27/17 21:25; Start 05/27/17 at 21:00 A/P Assessment and Plan A/P -Poor oral intake resulted in dehydration , hypokalemia and lactic acidosis:- improved. -Positive blood culture in 1 to: Possibly contamination,repeated blood cultures negative. -ROBIN : Improved on iv hydration Continue iv fluid, avoid nephrotoxin. -Acute diarrhea: stool negative for C-diff. - Signs of depression: Started on Remeron will help with a poor appetite she will need to follow as an outpatient with her PCP for psychiatry referral - Hypokalemia mostly due to diarrhea: Replaced -Hypertension: Hold HCTZ and trimetrine due to dehydration and ROBIN, clonidine as needed -Thrombocytopenia: no active GI bleed- the patient doesn't want any inpatient work-up- says that she'll have a f/u with her PCP. -Hyperlipidemia: Continue gemfibrozil -Weakness: PT OT consulted -DVT prophylaxis with SCD - Discharge Planning dc home today with [facility]. see med list. f/u with PCP. d/w the patient. Mikki Multani MD May 28, 2017 08:18
--- NOTE | 2017-05-28 08:20 | HHI.DCPOC ---
Discharge Care Plan Diagnosis: (1) Weakness (2) Dehydration (3) Hypokalemia Your Health Problems Are: Difficulty with ADL Goals to Promote Your Health * To prevent worsening of your condition and complications * To maintain your health at the optimal level Directions to Meet Your Goals Take your medications as prescribed Follow your dietary instruction Follow activity as directed Keep your appointments as scheduled Take your immunizations and boosters as scheduled If your symptoms worsen call your PCP, if no PCP go to Urgent Care Center or Emergency Room Smoking is Dangerous to Your Health. Avoid second hand smoke Call the 24-hour hour crisis hotline for domestic abuse at Mikki Multani MD May 28, 2017 08:19
--- NOTE | 2017-05-28 08:20 | HHI.DS ---
Discharge Summary Admission Date May 27, 2017 at 09:30 Discharge Date: May 28, 2017 Admitting Diagnosis hypokalemia, dehydration (1) Weakness ICD Code: R53.1 Diagnosis: Principal (2) Dehydration ICD Code: E86.0 Diagnosis: Principal Procedures none Brief History - From Admission 86 years old female brought to the ED by her daughter due to not eating or drinking for last 2 days and significant anhedonia for the last 2 weeks, history of losing about 15 pounds over the last 2 months. Patient denied any significant complain like fever chills, night sweat, chest pain abdominal pain, headache blurry vision, diarrhea or dysuria, she reported constipation Patient is not happy about coming to the hospital brought by her daughter, she doesn't think she need to be here, however she agreed that she doesn't feel like doing anything or eating anything because "nothing seems to be at feeling " When I asked her if she feels sad or depressed she denied. In ED she was found to have low potassium 2.9 and lactic acid of 4.1 along with azotemia increase creatinine, we do not have a baseline of her creatinine, blood culture obtained, patient started on iv fluids with KCl, no leukocytosis, neutrophils 79, no fever or chills. Abdominal x-rays showed cholelithiasis CBC/BMP: 05/28/17 0523 05/28/17 0523 Significant Findings Laboratory Tests Test 05/25/17 05/25/17 05/25/17 05/26/17 13:25 14:00 15:55 05:45 Platelet Count 143 TH/MM3 98 TH/MM3 (150-450) (150-450) Neutrophils (%) (Auto) 76.4 % (16.0-70.0) Potassium Level 2.9 MEQ/L 3.1 MEQ/L (3.5-5.1) (3.5-5.1) Creatinine 1.10 MG/DL (0.50-1.00) Estimat Glomerular Filtration 47 ML/MIN (>89) 69 ML/MIN (>89) Rate Random Glucose 121 MG/DL (74-106) Lactic Acid Level 4.1 mmol/L 2.8 mmol/L (0.4-2.0) (0.4-2.0) Troponin I LESS THAN 0.02 LESS THAN 0.02 NG/ML NG/ML (0.02-0.05) (0.02-0.05) Urine Ketones 80 OR GREATER mg/dL (NEG) Mean Platelet Volume 12.1 FL (7.0-11.0) Monocytes (%) (Auto) 11.2 % (0.0-8.0) Platelet Estimate LOW (NORMAL) Chloride Level 109 MEQ/L (98-107) Calcium Level 8.4 MG/DL (8.5-10.1) Total Protein 5.9 GM/DL (6.4-8.2) Albumin 2.9 GM/DL (3.4-5.0) Test 05/27/17 05/28/17 13:00 05:23 Platelet Count 101 TH/MM3 87 TH/MM3 (150-450) (150-450) Neutrophils (%) (Auto) 72.5 % (16.0-70.0) Chloride Level 109 MEQ/L 113 MEQ/L (98-107) (98-107) Estimat Glomerular Filtration 65 ML/MIN (>89) 68 ML/MIN (>89) Rate Random Glucose 120 MG/DL (74-106) Red Blood Count 3.91 MIL/MM3 (4.00-5.30) Mean Platelet Volume 11.7 FL (7.0-11.0) Monocytes (%) (Auto) 8.4 % (0.0-8.0) Platelet Estimate LOW (NORMAL) Sodium Level 146 MEQ/L (136-145) Imaging Last Impressions Abdomen/Pelvis CT 05/26/17 0000 Signed Impressions: Service Date/Time: Friday, May 26, 2017 22:42 - CONCLUSION: 1. Several prominent gallstones in the gallbladder. No biliary tract obstruction. No adjacent inflammatory changes. 2. No calcified renal stones or hydronephrosis. 3. No acute pathology. Mayito Stoddard MD Gall Bladder Ultrasound 05/25/17 1432 Signed Impressions: Service Date/Time: Thursday, May 25, 2017 15:13 - CONCLUSION: Cholelithiasis. K. Nas Winkler MD Abdomen X-Ray 05/25/17 1311 Signed Impressions: Service Date/Time: Thursday, May 25, 2017 13:42 - CONCLUSION: Cholelithiasis. Marylou Winkler MD Chest X-Ray 05/25/17 1303 Signed Impressions: Service Date/Time: Thursday, May 25, 2017 13:40 - CONCLUSION: No acute cardiopulmonary disease. Marylou Winkler MD PE at Discharge GENERAL: elderly female, in no apparent distress. CARDIOVASCULAR: Regular rate and regular rhythm without murmurs, gallops, or rubs. RESPIRATORY: Clear to auscultation. Breath sounds equal bilaterally. No wheezes , rales, or rhonchi. GASTROINTESTINAL: Abdomen soft, non-tender, nondistended. Normal, active bowel sounds MUSCULOSKELETAL: Extremities without clubbing, cyanosis, or edema. NEURO: Alert & Oriented x4 to person, place, time, situation. Moves all ext x4 Hospital Course -Poor oral intake resulted in dehydration , hypokalemia and lactic acidosis:- improved. -Positive blood culture in 1 to: Possibly contamination,repeated blood cultures negative. -ROBIN : Improved on iv hydration Continue iv fluid, avoid nephrotoxin. -Acute diarrhea: stool negative for C-diff. - Signs of depression: Started on Remeron will help with a poor appetite she will need to follow as an outpatient with her PCP for psychiatry referral - Hypokalemia mostly due to diarrhea: Replaced -Hypertension: Hold HCTZ and trimetrine due to dehydration and ROBIN, clonidine as needed -Thrombocytopenia: no active GI bleed- the patient doesn't want any inpatient work-up- says that she'll have a f/u with her PCP. -Hyperlipidemia: Continue gemfibrozil -Weakness: PT OT consulted -DVT prophylaxis with SCD - Pt Condition on Discharge: Stable Discharge Disposition: Disch w/ Home Health Serv Discharge Time: <= 30 minutes Discharge Instructions DIET: Follow Instructions for: Heart Healthy Diet Activities you can perform: Regular-No Restrictions, See Additionl Instruction Other Activity Instructions: per pT recs Follow up Referrals: PCP Follow-up New Orders: CBC WITH DIFF New Medications: Amlodipine (Amlodipine) 5 Mg Tab 5 MG PO DAILY Blood Pressure Management #30 Ref 0 TAB Potassium Chloride ER (Potassium Chloride ER) 10 Meq Tab 10 MEQ PO BID Electrolyte Replacement #60 Ref 0 TAB Continued Medications: Allopurinol (Allopurinol) 100 Mg Tab 200 MG PO DAILY Gout #30 Ref 0 TAB Gemfibrozil (Gemfibrozil) 600 Mg Tab 600 MG PO BIDAC Take 30 minutes prior to breakfast and dinner. #60 Ref 0 TAB Metoprolol Tartrate (Metoprolol Tartrate) 50 Mg Tab 50 MG PO DAILY #30 Ref 0 TAB Mikki Multani MD May 28, 2017 08:20
[2017-05-28] MEDS: ALLOPURINOL 100 MG TAB PO SCH (08:26)
[2017-05-28] MEDS: DOCUSATE SODIUM 50 MG/SENNA 8.6 MG TAB PO SCH (08:27)
[2017-05-28] MEDS: METOPROLOL TARTRATE 50 MG TAB PO SCH (08:28)
[2017-05-28] MEDS: SODIUM CHLORIDE 0.9% FLUSH 10 ML FLUSH IV FLUSH SCH (08:29)
[2017-05-28] MEDS: TRIAMTERENE/HCTZ 37.5 MG/25 MG TAB PO SCH (08:29)
[2017-05-28] MEDS: NS + KCL 20 MEQ INJ 1,000 ML IV SCH (08:30)
[2017-05-29] MEDS ORDERED: VANCOMYCIN TROUGH ONE (16:45)
== END 2017-05-28 13:21 | disposition home health service (06) | DRG 683 ==
LOC: PHED 12:28 → PHEDA 14:33 → PH3A 17:07 → OBSVTOIN 05-27 09:30
PROVIDERS: ADMIT Internal Medicine; ATTEND Internal Medicine
DX: N17.9 Acute kidney failure, unspecified (principal); E87.2 Acidosis; Z68.1 Body mass index [BMI] 19.9 or less, adult; I10 Essential (primary) hypertension; E87.6 Hypokalemia; E86.0 Dehydration; D69.6 Thrombocytopenia, unspecified; R63.4 Abnormal weight loss; E78.5 Hyperlipidemia, unspecified; M10.9 Gout, unspecified; R19.7 Diarrhea, unspecified; F32.9 Major depressive disorder, single episode, unspecified
CPT/HCPCS: 71010; 74020; 74176; 76705; 80048; 80053; 80076; 81001; 82550; 82948; 83605; 83690; 83735; 84132; 84484; 85025; 86403; 87040; 87077; 87186; 87205; 87328; 87329; 87493; 87506; 93005; 94620; G8987-GO; G8987-GP; G8988-GO; G8988-GP; J1644; J2405; J3370; J3480; J7030; J7040; J7050; Q9963

== ENCOUNTER → 2017-07-09 | Outpatient (CLI) | payer OTHER ==
[~2017-07-09] MED LIST: ALLO100T PO; AMLO5TAB2 PO; GEMF600T PO; LEVO50TA4 PO; METO50TA PO; POTA10TA2 PO
--- NOTE | 2017-07-15 10:30 | RSPPFT ---
DATE OF PROCEDURE: 07/09/17 COMMENTS: Spirometry with FVC of 3.0, FEV1 of 2.3, FEV1/FVC ratio at 78%. A non-significant response to acutely inhaled bronchodilator noted. Slow vital capacity is 100% of predicted. TLC is 94%. Diffusion capacity is 57%. Flow volume loop is unremarkable. IMPRESSION: 1. Mild reduction in diffusion capacity. 2. No evidence of airways obstruction or restriction. 3. Non-significant response to acutely inhaled bronchodilator.
== END ==
LOC: HRSP 10:59
PROVIDERS: ATTEND Internal Medicine Sleep Medicine
DX: R06.89 Other abnormalities of breathing (principal)
CPT/HCPCS: 94060; 94726; 94729